=== PATIENT | female | born 1985 | race African-American/Black ===

== ENCOUNTER 2019-06-28 16:50 | Emergency (ER) | payer OTHER ==
[~2019-06-28] VITALS: Ht 162.6 cm; Wt 59.0 kg
[2019-06-28 17:32] VITALS: BP 118/77; Ht 162.6 cm; Wt 59.0 kg
== END 2019-06-28 19:46 | disposition left against medical advice (07) ==
LOC: ED 16:50
DX: Z53.21 Procedure and treatment not carried out due to patient leaving prior to being seen by health care provider (principal)